=== PATIENT | female | born 1945 | race African-American/Black ===

== ENCOUNTER 2018-06-01 13:14 | Emergency (ER) | payer MEDICARE, OTHER ==
[2018-06-01 13:29] VITALS: TEMP 98.1; BMI 25.0
--- NOTE | 2018-06-01 13:37 | PDOC ---
History of Present Illness - General Chief Complaint: Injury Stated Complaint: INJURY Time Seen by Provider: 06/01/18 13:36 - History of Present Illness Initial Comments: 06/01/18 13:57 Ms. 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 Patient relates she was walking when she hit the string and fell face forward; patient hit head on floor. Patient immediately called for her sister and denies any LOC. Reports she initially had some headache which has dissipated. Does not know date of last tetanus shot. The patient denies chest pain, shortness of breath, headache and dizziness. Denies fever, chills, nausea, vomit, diarrhea and constipation. Denies dysuria, frequency, urgency and hematuria. Past History - Past Medical History Allergies/Adverse Reactions: Allergies Allergy/AdvReac Type Severity Reaction Status Date / Time codeine Allergy Intermediate WEAK Verified 06/01/18 13:24 Home Medications: Ambulatory Orders Metoprolol Succinate [Toprol XL -] 25 mg PO DAILY 06/01/18 Rivaroxaban [Xarelto -] 20 mg PO DAILY 06/01/18 Valsartan [Diovan] 80 mg PO DAILY 06/01/18 Anemia: No Asthma: No Cancer: Yes (uterine?, Ovarian?) Cardiac Disorders: No CVA: No COPD: No (SEASONAL ALLERGIES) CHF: No Dementia: No Diabetes: No GI Disorders: Yes (HEARTBURN) Disorders: No HTN: Yes Hypercholesterolemia: No Liver Disease: No Seizures: No Thyroid Disease: No - Surgical History Abdominal Surgery: No Appendectomy: No Cardiac Surgery: No Cholecystectomy: No Lung Surgery: No Neurologic Surgery: No Orthopedic Surgery: No - Immunization History Immunization Up to Date: No - Suicide/Smoking/Psychosocial Hx Smoking History: Never smoked Have you smoked in the past 12 months: No Hx Alcohol Use: No Drug/Substance Use Hx: No Substance Use Type: None Hx Substance Use Treatment: No Review of Systems - Review of Systems Comments:: 06/01/18 14:01 GENERAL/CONSTITUTIONAL: No fever or chills. No weakness. HEAD, EYES, EARS, NOSE AND THROAT: +Prior right head pain which has resolved w/ out intervention. No change in vision. No ear pain or discharge. No sore throat. CARDIOVASCULAR: No chest pain or shortness of breath RESPIRATORY: No cough, wheezing, or hemoptysis. GASTROINTESTINAL: No nausea, vomiting, diarrhea or constipation. GENITOURINARY: No dysuria, frequency, or change in urination. MUSCULOSKELETAL: No joint or muscle swelling or pain. No neck or back pain. SKIN: No rash NEUROLOGIC: No headache, vertigo, loss of consciousness, or change in strength/ sensation. ENDOCRINE: No increased thirst. No abnormal weight change HEMATOLOGIC/LYMPHATIC: No anemia, easy bleeding, or history of blood clots. ALLERGIC/IMMUNOLOGIC: No hives or skin allergy. *Physical Exam - Vital Signs Last Vital Signs Temp Pulse Resp BP Pulse Ox 98.1 F 90 16 172/88 98 06/01/18 13:24 06/01/18 13:24 06/01/18 13:24 06/01/18 13:24 06/01/18 13:24 - Physical Exam Comments: 06/01/18 14:02 GENERAL: Awake, alert, and fully oriented, in no acute distress HEAD: +approx. 2-3cm lac just lateral to R eyebrow. Normocephalic EYES: PERRLA, EOMI, sclera anicteric, conjunctiva clear ENT: Auricles normal inspection, hearing grossly normal, nares patent, oropharynx clear without exudates. Moist mucosa NECK: Normal ROM, supple, no lymphadenopathy, JVD, or masses LUNGS: No distress, speaks full sentences, clear to auscultation bilaterally HEART: Regular rate and rhythm, normal S1 and S2, no murmurs, rubs or gallops, peripheral pulses normal and equal bilaterally. ABDOMEN: Soft, nontender, normoactive bowel sounds. No guarding, no rebound. No masses EXTREMITIES: Normal inspection, Normal range of motion, no edema. No clubbing or cyanosis. NEUROLOGICAL: Cranial nerves II through XII grossly intact. Normal speech, normal gait, no focal sensorimotor deficits SKIN: Warm, Dry, normal turgor, no rashes or lesions noted. Procedures - Laceration/Wound Repair Right Anterior Lateral Face Wound Length: to 2.5 cm Wound Explored: clean Wound's Depth, Shape: superficial Irrigated w/ Saline: Yes Betadine Prep: No Anesthesia: 1% Lidocaine Amount of Anesthetic (ccs): 2 Wound Debrided: minimal Wound Repaired With: Sutures Suture Size/Type: 5:0 Number of Sutures: 5 Layer Closure: No Sterile Dressing Applied: Yes Splint Applied: No Sling Applied: No ED Treatment Course - LABORATORY CBC & Chemistry Diagram: 06/01/18 14:00 Medical Decision Making - Medical Decision Making 06/01/18 14:37 Ms. Cohen is a 73 yo female w/ pmh as described who presents for evaluation after fall earlier today. Patient well appearing w/ no focal deficits. 2.5 cm laceration noted lateral to right eyebrow. Patient tetanus booster given and head CT ordered for r/o bleed given patient's anticoagulation status. Patient platelets in normal value. Laceration closed as above w/ 5 5-0 sutures without difficulty. Patient given return precaution information and verbalized understanding. PCP care info given to patient as well per request. Head CT pending. 06/01/18 16:[address] negative. Discharging to home. *DC/Admit/Observation/Transfer Diagnosis at time of Disposition: Laceration Fall Qualifiers: Encounter type: initial encounter Qualified Code(s): W19.XXXA - Unspecified fall, initial encounter - Discharge Dispostion Disposition: HOME - Referrals Referrals: [facility] [place] [Provider Group] - Patient Instructions Printed Discharge Instructions: DI for Suture Removal Additional Instructions: You were evaluated today in the ER after your fall. Head CT was negative for acute process. Your laceration was closed with 5 5-0 sutures. Please return in 5 -7 days for stitch removal. Return to ER if any fever, pus, redness, pain not controllable with over the counter medications, or other concerning symptoms. - Post Discharge Activity
--- NOTE | 2018-06-01 13:57 | PDOC ---
Attending Attestation - Resident Resident Name: Camacho Hartman - ED Attending Attestation I have performed the following: I have examined & evaluated the patient, The case was reviewed & discussed with the resident, I agree w/resident's findings & plan, Exceptions are as noted - HPI HPI: 06/01/18 14:40 Agree with Residents HPI - Physicial Exam PE: 06/01/18 14:40 Agree with resident PE - Medical Decision Making 06/01/18 18:[address] Mechanical slip and floor CT head negative. Laceration repaired. Findings, head injury precautions and the need for follow-up discussed with patient.
[2018-06-01 14:13] LABS: BASO % 0.3 % (0-2.0); EOS % 0.5 % (0-4.5); HEMATOCRIT 39.4 % (32.4-45.2); HEMOGLOBIN 13.2 GM/dL (10.7-15.3); LYMPH % 44.2 % (8-40); MCH 33.3 pg (25.7-33.7); MCHC 33.5 g/dl (32.0-36.0); MEAN CELL VOLUME 99.4 fl (80-96); MEAN PLT VOLUME 7.5 fl (7.5-11.1); MONO % 6.4 % (3.8-10.2); NEUT % 48.6 % (42.8-82.8); PLATELET COUNT 179 K/MM3 (134-434); RBC 3.96 M/mm3 (3.60-5.2); RDW 13.3 % (11.6-15.6); WHITE BLOOD COUNT 5.7 K/mm3 (4.0-10.0)
[2018-06-01] MEDS ORDERED: DIPHTH,PERTUSS(ACELL),TET 0.5 ML DISP.SYRIN IM ONE (14:42)
[2018-06-01 16:36] VITALS: BP 136/64; PULSE 72
== END 2018-06-01 16:36 | disposition home or self-care (01) ==
LOC: JER 13:14
PROC: 0HQ1XZZ Repair Face Skin, External Approach (ICD-10-PCS; principal; 2018-06-01)
PROC: 3E0234Z Introduction of Serum, Toxoid and Vaccine into Muscle, Percutaneous Approach (ICD-10-PCS; 2018-06-01)
DX: S01.111A Laceration without foreign body of right eyelid and periocular area, initial encounter (principal); W18.09XA Striking against other object with subsequent fall, initial encounter; Y93.E2 Activity, laundry; Y92.89 Other specified places as the place of occurrence of the external cause; Y99.8 Other external cause status; I10 Essential (primary) hypertension; Z85.43 Personal history of malignant neoplasm of ovary; Z86.718 Personal history of other venous thrombosis and embolism; Z79.01 Long term (current) use of anticoagulants
CPT/HCPCS: 36415; 70450-TC; 85025; 90715; 99281-25